=== PATIENT | female | born 1970 | race Native Hawaiian/Other Pacific Islander ===

== ENCOUNTER 2020-12-17 08:32 | Outpatient (CLI) | payer BC, OTHER ==
[~2020-12-17] VITALS: Ht 157.5 cm; Wt 85.3 kg
== END 2020-12-17 21:56 | disposition home or self-care (01) ==
LOC: INF 08:32
PROVIDERS: ATTEND Internal Medicine Endocrinology, Diabetes & Metabolism
DX: Z23 Encounter for immunization (principal); U07.1 COVID-19
CPT/HCPCS: 96365; M0244